=== PATIENT | female | born 1935 | race Asian ===

== ENCOUNTER 2024-12-26 23:09 | Inpatient (IN) | payer MEDICARE, OTHER, SELFPAY ==
[2024-12-26] VITALS (9 sets, daily range): BP systolic 82–110; BP diastolic 43–47
[2024-12-26] MEDS: NSS 500 IV (18:50)
[2024-12-26 19:05] LABS: Hematocrit 31.6 % (37.0-47.0); Hemoglobin 10.6 g/dL (12.0-16.0); Mean Corp Hgb Conc. 33.5 g/dL (33.0-37.0); Mean Corpuscular Volume 88.8 fL (81.0-99.0); Nucleated Red Blood Cells % 0.2 %; Platelet Count 233 10^3/uL (130-400); Red Cell Dist. Width 14.1 % (11.5-14.5)
--- NOTE | 2024-12-26 19:10 | ED.GENMED ---
History of Present Illness
General
Chief Complaint: Dizziness
Source: patient and family
Exam Limitations: none
Time Seen by Provider: 12/26/24 18:31
Nursing documentation reviewed up to this point in time: agreed with
History of Present Illness
History of Present Illness:
Patient is an 89-year-old female who presents to the emergency department with daughter for concerns of weakness. Majority of history obtained using daughter for assistance with translation
Patient's daughter states that for the past 3 days her mom has seemed very weak and was complaining of lightheadedness and dizziness. Patient's daughter states that when she got to her house this evening around 5 PM her mom seemed to be slurring
her words slightly and saying nonsensical things. She lives at home with her and onset of this potential slurring/confusion is unknown. Her daughter does state that over the past few days her mom's seem very lightheaded and had a few
episodes where she appeared to have 'blacked out '. Patient states she feels mildly short of breath. There is no history of trauma.
She has also been eating and drinking very little as she states she has no appetite. She has been having difficulty with bowel movements however denies any black or bloody stools. Patient denies any fever, chills, productive cough, abdominal pain,
nausea, or vomiting. She denies any headache. No changes in her vision. She has no chest pain.
Patient is anticoagulated on Eliquis and supposedly compliant with medication.
Past History
Past History
ED Past Medical History: Arrthythmia (Atrial fibrillation), CHF, GERD, HTN and Other (TIA, carotid stenosis, hyponatremia)
ED Past Surgical History: Cardiac (Pacemaker) and Cholecystectomy
Social History
Tobacco: Non-smoker
Alcohol: None
Drug: None
Personal:
Living: with family
Employment: Retired
Family History
Family History: Hypertension
Review of Systems
Review of Systems
Allergies reviewed?: Yes
All Other Systems: ROS reviewed and negative except as documented in HPI and ROS
Phy Exam
Physical Exam
Physical Exam:
Vitals: Hypertensive, otherwise vital signs stable. Afebrile
General: Patient is weak appearing
Skin: Warm and dry, no rashes or lesions
Head: Normocephalic, atraumatic
Eyes: Sclera nonicteric. EOMs intact. No nystagmus.
Throat: Dry mucous membranes. Protecting airway
Neck: Normal ROM, no cervical spine tenderness, no meningismus
Cardiac: Regular rate and irregularly irregular rhythm, no murmurs.
Pulm: Normal respiratory effort, no wheezes, rales, rhonchi heard on exam
Abdomen: Abdomen soft and nontender.
Extremities: No evidence of cyanosis or edema. Strength 5/5 in bilateral upper and lower extremities.
Neuro: AAOx3. CN II-XII grossly intact. Fluid speech. No facial droop or asymmetry. Normal [id number]. No focal neurologic deficits.
Psychiatric: Normal affect.
Course
Orders/Labs/Results
Orders:
Orders
12/26/24 18:05
Electrocardiogram (*1) Urgent
Reason for Study: Vertigo / Dizzy
12/26/24 18:06
EKG- Treatment ONCE
12/26/24 18:45
pacemaker [Interrogate Pacemaker- Treatment] ONCE
0.9% Sodium Chloride 500 ml [Nss] 500 ml IV BOLUS
CR Chest - 2 Views Urgent
Comment:
Reason For Exam: SOB, weakness
12/26/24 18:46
CT Head W/o Iv Contrast Urgent
Comment:
Reason For Exam: Weakness, dizziness
12/26/24 18:51
Complete Blood Count/With Diff Urgent
Comprehensive Metabolic Panel Urgent
Glycohemoglobin (HgbA1c) Urgent
NT-proBNP Urgent
Troponin I Urgent
12/26/24 21:37
Urinalysis Reflex To Culture Urgent
Date Specimen was Collected: 12/26/24
Time Specimen was Collected: 21:36
Urine Microscopic Reflex Cult Urgent
12/26/24 21:42
CefTRIAXone [Rocephin] 1,000 mg IV NOW STA
Potassium Chloride [KCl] 40 meq PO NOW STA
12/26/24 21:48
Doxycycline [Vibramycin] 100 mg PO NOW STA
12/26/24 22:21
Add On- LAB Urgent
Tests Added?: [id number]
12/26/24 22:49
Admit/Transfer Patient As Directed
Co-Sign Provider:
Level of Care: Inpatient admission
Assign to:: IMU- Intermediate Care
Physician / Group: simin moore
Diagnosis: LLL pna, hypotension, hannah volum deplet, shock liver
Reason for Hospitalization: LLL pna, hypotension, hannah volum deplet, shock liver
Expected length of stay greater than two midnights?: Yes
ELOS- Estimated Length of Stay in days: 3
I certify the patient meets the requirements for IP care: Yes
Code Status As Directed
Resuscitation Status: Full Code
12/26/24 22:52
PRN Pain Medication Management As Directed
May give lesser potent ordered pain med per pt: Yes
preference::
Protocol:: Medication orders for pain may be administered in a
manner that supports deferring to patient preference
when the pt is:
- Requesting an ordered lesser potent pain medication.
Least to most potent pain medications are defined
as: acetaminophen < NSAID < tramadol < opioids
(morphine, oxycodone, hydromorphone).
- Requesting a lesser dose of the same medication IF
ORDERED.
- Requesting a less intrusive route of administration
if both routes are prescribed by the provider (PO <
IV).
12/26/24 23:00
0.9% Sodium Chloride 1000 ml [Nss] 1,000 ml IV 80 mls/hr
Flush (0.9% Sodium Chloride) [Flush (Nss)] See Dose Instructions IV PER PROTOCOL
12/26/24 23:08
COVID-19 Antigen Urgent
Source: Nasal Swab
Lactic Acid Q4H
Comment: CANCEL 2nd LACTIC ACID IF 1st LACTIC ACID IS LESS THAN 2
Blood Culture Q30M
SHY Source: Blood/Venous
Specimen Description:
Blood Culture Q30M
SHY Source: Blood/Venous
Specimen Description:
Influenza A+B Rapid Molecular Urgent
SHY Source: Nasal Swab
Specimen Description:
12/27/24 01:43
Dextrose 50%-Water [Dextrose 50% Syringe] 12.5 grams IV [id number] PRN
Glucagon [GlucaGen] 1 mg IM PRN PRN
12/27/24 01:43
VTE Contraindication Routine
VTE Mechanical Device Contraindication: Medical Contraindication
Pharmocologic Contraindication: Medical Contraindication
Comment: Continue TECHNICAL BUSINESS SYSTEMS ANALYST Eliquis
Activity As Directed
Activity Level: With Assistance
Comment: Uses walker at baseline
Bedside Glucose Monitoring As Directed
Frequency: AC&HS
Additional Instructions:: Change to q6h if pt on TPN, tube feeding or not eating
Intake/ Output As Directed
Frequency: Per unit guidelines
Vital Signs As Directed
Frequency: q4h
Weight As Directed
Frequency: Daily
Pt Eval And Treat Routine
Activity Level: With Assistance
12/27/24 06:00
EKG [Electrocardiogram (*1)] IN AM
Reason for Study: QTc Monitoring
Complete Blood Count/With Diff IN AM
Comprehensive Metabolic Panel IN AM
12/27/24 07:30
Insulin Aspart Corrective Low [Novolog Flexpen-Low Resistance] See Protocol SC AC
12/27/24 08:00
Apixaban [Eliquis] 2.5 mg PO BID
Doxycycline [Vibramycin] 100 mg PO Q12
Gabapentin [Neurontin] 100 mg PO TID
Pantoprazole [Protonix] 40 mg PO DAILY
12/27/24 12:00
Calcium Carbonate/Vitamin D3 [Oscal 500 + D] 500 mg PO DAILY@1200
Cholecalciferol (Vitamin D3) [VITAMIN D3 (cholecalciferol)] 125 mcg PO DAILY@1200
12/27/24 Dinner
1800 calorie (15 carb) Diabetic
At Your Request: Limited Participation
12/27/24 17:00
Atorvastatin [Lipitor] 10 mg PO DAILY@1700
12/27/24 22:00
CefTRIAXone [Rocephin] 1,000 mg IV Q24H
12/28/24 06:00
EKG [Electrocardiogram (*1)] IN AM
Reason for Study: QTc Monitoring
Complete Blood Count/With Diff IN AM
Comprehensive Metabolic Panel IN AM
12/29/24 06:00
EKG [Electrocardiogram (*1)] IN AM
Reason for Study: QTc Monitoring
Complete Blood Count/With Diff IN AM
Comprehensive Metabolic Panel IN AM
12/30/24 06:00
Complete Blood Count/With Diff IN AM
Comprehensive Metabolic Panel IN AM
Abnormal Lab Results
12/26/24 12/26/24
18:51 21:37
WBC 12.8 H 10^3/uL
(4.8-10.8)
RBC 3.56 L 10^6/uL
(4.20-5.40)
Hgb 10.6 L g/dL
(12.0-16.0)
Hct 31.6 L %
(37.0-47.0)
Abs Immat Gran (auto) 0.1 H 10^3/uL
(0-0.05)
Absolute Neuts (auto) 10.8 H 10^3/uL
(1.4-6.5)
Absolute Lymphs (auto) 0.8 L 10^3/uL
(1.2-3.4)
Absolute Monos (auto) 1.0 H 10^3/uL
(0.1-0.6)
Immature Gran % 0.6 H %
(0-0.5)
Neutrophils % 84.7 H %
(42.2-75.2)
Lymphocytes % 6.2 L %
(20.5-51.1)
Sodium 134 L mmol/L
(135-145)
Potassium 3.4 L mmol/L
(3.5-5.1)
BUN 36 H mg/dl
(7-17)
Creatinine 1.6 H mg/dL
(0.6-1.0)
Glucose 273 H mg/dl
(70-99)
Calcium 7.8 L mg/dl
(8.4-10.2)
AST 340 H U/L
(14-36)
ALT 305 H U/L
(0-35)
Total Protein 5.8 L g/dl
(6.3-8.2)
Albumin 3.1 L g/dl
(3.5-5.0)
Ur Occult Blood Reflex 2+ A
(Negative)
Urine RBC 3-6 A /HPF
(0-2)
Urine Bacteria (Reflex) Few A
(Negative)
Urine Albumin (Reflex) 1+ A
(Neg - Trace)
12/26/24 18:51
12/26/24 18:51
Vital Signs
Initial and Last Documented VS:
Initial Vital Signs
Temp Pulse Resp BP Pulse Ox
98.5 F 74 16 82/47 94
12/26/24 18:06 12/26/24 18:06 12/26/24 18:06 12/26/24 18:06 12/26/24 18:06
Last Documented Vital Signs
Temp Pulse Resp BP Pulse Ox
98.5 F 60 20 111/49 93
12/27/24 03:00 12/27/24 02:45 12/27/24 02:45 12/27/24 02:07 12/27/24 02:47
MDM/Problems Addressed
Differential Diagnosis Includes:
Not limited to: Acute dehydration, sepsis, congestive heart failure, cardiac arrhythmia, UTI, CVA, etc.
MDM/Problems Addressed:
89-year-old female with a few days of generalized weakness and dizziness. Apparently she had a fever a few days ago which has resolved. Daughter concerned about possible slurred/abnormal speech today. No chest pain or shortness of breath. No
abdominal pain. Patient hypotensive on arrival with otherwise stable vital signs. Physical exam as above. Patient generally weak appearing. Cardio/pulmonary assessment as above. No focal neurologic deficits. She has an NIH of 0. Differential
broad. Patient does appear very dry�symptoms possibly related to dehydration however given recent fever infectious source would be a concern as well. Much lower suspicion for central etiology given patient has no neurologic deficits on exam. ED
plan: Labs, urine, chest x-ray, head CT. Will give IV fluids and reassess.
Update: Labs reviewed. Leukocytosis of 12.8. Chemistry reveals HANNAH as well as hyperglycemia likely prerenal from dehydration. BNP elevated to 9160. LFTs elevated, nonspecific. Urine does not appear infected. Head CT without acute findings.
Chest x-ray does show a possible left lower lobe pneumonia.
Patient's blood pressure did improve somewhat after small bolus of IV fluids. Will hold further fluids given known CHF. Patient does have evidence of infection with pneumonia seen on x-ray. I suspect hypotension likely secondary to dehydration
rather than sepsis however will send blood cultures and check lactic. Patient will require admission for further management given significant dehydration as well as evidence of pneumonia. Antibiotics initiated in the emergency department. Patient
accepted to the hospitalist service in stable condition.
Chronic conditions affecting care:
Atrial fibrillation on Eliquis, CHF, hypertension
Acute Exacerbation and/or Progression of Chronic Illness:
N/A
*Radiology
Radiology exam reviewed: preliminary read by ED provider and radiology read reviewed
*Pulse Oximetry
SaO2: 94
Oxygen Mode of Delivery: Room air
Patient hypoxic: no
*EKG
Interpreted by ED Provider?: Yes
EKG Intrepretation Date: 12/26/24
Interpretation: abnormal
Comparison EKG: changes noted
Heart Rate: 92
Rate: normal
Rhythm: a-fib and ventricular paced
Interval: long QT
QRS Pattern: normal QRS
Ischemia: no ischemia
*Organizational Development Consultant Interpretation
Rate: normal
Interpretation: abnormal
Heart Rate: 82
Rhythm: a-fib
*Critical Care Note
Total Time (30-74mins, 75-104mins- exclusive of procedures): Not Applicable
Data Reviewed
Review of Other/Old Records Reveals: Testing (Cardiac echo from 02/03/2023 which reveals left ventricular ejection fraction of 65 to 70%)
Patient Management
Discussion with other providers: Hospitalist
Escalation/DeEscalation of care consider admission/obs:
Admit for further management
ED Attending Note
-
Portions of this chart may have been created with voice recognition software.� Occasional wrong word or��sound alike� substitutions may have occurred due to the inherent limitations of voice recognition software.
Discharge Plan
Departure
Patient Disposition: Admit
Date of Disposition: 12/26/24
Time of Disposition: 21:48
Presentation/result/management discussed w/ accepting MD/DO: Hospitalist
Discharge Problem:
Pneumonia, HANNAH (acute kidney injury), Weakness, CHF exacerbation
Interventions
Interventions:
*Risk Screen - Suicide Last Done: 12/26/24 18:11
*Neglect/Abuse Screening Last Done: 12/26/24 18:11
ED- Neurological Assessment Last Done: 12/27/24 00:50
ED- Cardiac Assessment Last Done: 12/26/24 19:24
ED Swallowing Screen Last Done: 12/27/24 00:50
[2024-12-26 19:20] LABS: ALT (SGPT) 305 U/L (0-35); AST (SGOT) 340 U/L (14-36); Albumin 3.1 g/dl (3.5-5.0); Alkaline Phosphatase 124 U/L (38-126); Blood Urea Nitrogen 36 mg/dl (7-17); Calcium 7.8 mg/dl (8.4-10.2); Carbon Dioxide 27 mmol/L (22-30); Chloride 100 mmol/L (98-107); Glucose 273 mg/dl (70-99); Potassium 3.4 mmol/L (3.5-5.1); Sodium 134 mmol/L (135-145); Total Protein 5.8 g/dl (6.3-8.2); eGFR 31.02
[2024-12-26 19:30] LABS: Troponin I 0.032 ng/ml
[2024-12-26 21:53] LABS: Urine Character Slightly Cloudy (Clear)
--- NOTE | 2024-12-26 22:05 | HPS.HSE ---
Addendum entered and electronically signed by Christiano Wahl DO 12/26/24 23:12:
Patient seen and examined independently. Agree with findings and plan as set forth by VIVIANA Morocho.
Patient is an 89y F with PMH significant for A-Fib, hypertension and CHFpEF who presents to ED for evaluation of generalized weakness, fatigue lightheadedness and dizziness. History obtained from patient and family at bedside with family serving
as stripper opaquer. Patient reportedly seen at Urgent Care about 3 days ago due to fevers / chills and temperature of 100.9. They recommended supportive care for suspected viral illness. Patient with increased fatigue and weakness since that time.
Seemed confused tonight at dinner with some slurred speech. Brought to the ED today for evaluation and noted to be hypotensive on arrival.
Evaluation in the ED reveals hypotension and CXR with L base infiltrate / opacity.
Ass:
LLL Pneumonia
Sepsis secondary to the above
Hypotension secondary to the above
HANNAH
Abnormal LFTs
Paroxysmal Atrial Fibrillation
Prolonged QTc
Chronic HFpEF
Plan:
Admit for further evaluation and treatment.
Recent fever / chills now with weakness / confusion and LLL infiltrate seen on CXR.
Patient with leukocytosis, tachypnea and evidence for pneumonia.
Hypotensive in the ED - responded to fluids.
Continue abx with ceftriaxone and doxycycline.
IVF support. Hold diuretics (only takes bumetanide PRN anyway).
Note significantly elevated ProBNP but examination and history not c/w CHF.
Hold amiodarone acutely given prolonged QTc.
Hold antihypertensive medications for now.
IVFs +/- pressor support if needed to maintain perfusion.
Follow for improvement in renal function / return to baseline.
? LFT abnormality secondary to infectious process versus hypotension - follow for changes.
Original Note:
Family Physician
-
Family Physician: Aarti COTTON
Chief Complaint
-
Lightheadedness, dizziness, confusion
History of Present Illness
89-year-old female from home with daughter translating stating her mother has had 3 days of feeling weak complaining of lightheadedness and dizziness. She reports her mother went [facility] she was advised by her sibling due to
fever and chills had a temperature of 100.9 F was told she had a viral illness and sent home. She found her at 5 PM seem to be slurring words and saying nonsensical things. She has had decreased oral intake and no appetite along with difficulty
moving her bowels. She typically only drinks 40 ounces a day due to a fluid restriction for heart failure but was having difficulty drinking that. Today she was sitting at the dining table all day with her head and her hand complaining of
lightheadedness and dizziness. The daughter denies any headache, fever, chills, cough, shortness of breath, abdominal pain, nausea, vomiting. Patient has past medical history of hypovolemic shock, hypotension secondary to shock liver July 2022
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
normocytic anemia, TIA, carotid stenosis, GERD, anxiety depression, chronic arthritis.
Medical History
Past Medical History
Past Medical History: Reports Other
Additional Past Medical History:
Hypovolemic shock July 2022
Hypotension secondary to shock liver July 2022 after left femoral shaft fracture requiring gamma nail
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
Paroxysmal A-fib/PVI ablation 03/07/2020
Sick sinus syndrome status post permanent Pacemaker
Chronic diastolic heart failure preserved EF
Normocytic anemia
TIA
Carotid stenosis
GERD
Anxiety/ Depression
chronic arthritis
Past Surgical History: Reports Cholecystectomy
Additional Past Surgical History:
SSS�permanent pacemaker
left femoral shaft fracture requiring gamma nail July 2022
Social History
Tobacco: Non-smoker
Alcohol: None
Drug: None
Personal:
Living: With Family
Employment: Retired
Family History
Family History: Not pertinent
Allergies / Home Medications
Allergies reflects when Allergies were last updated in [employer].
Home Medications with original date entered in [employer]
Allergy/Medication List:
Allergies
Allergy/AdvReac Type Severity Reaction Status Date / Time
acetaminophen (From Tylenol) Allergy Swelling Verified 02/23/23 10:55
bee venom protein (honey bee) Allergy Anaphylaxis Verified 02/23/23 10:55
Home Medications
gabapentin 100 mg capsule 100 mg PO TID numbness and pain 04/29/19
pitavastatin calcium 2 mg tablet (Livalo) 2 mg PO DAILY@1700 High cholesterol 04/29/19
calcium 600 mg (as carbonate)-vitamin D3 10 mcg (400 unit) tablet (Calcium 600 + D(3)) 1 tab PO DAILY@1200 Supplement 12/05/22
cholecalciferol (vitamin D3) 125 mcg (5,000 unit) tablet (Vitamin D3) 125 mcg PO DAILY@1200 Supplement 12/05/22
diltiazem HCl 180 mg capsule,extended release 24 hr 180 mg PO DAILY@1400 Arrhythmia 12/05/22
olmesartan 20 mg tablet (Benicar) 20 mg PO BID AT 0800,1700 Blood Pressure 12/05/22
apixaban 2.5 mg tablet (Eliquis) 2.5 mg PO BID Blood Clot Prevention/Tx 02/23/23
metoprolol tartrate 25 mg tablet 25 mg PO BID Blood Pressure 02/23/23
bumetanide 1 mg tablet 1 mg PO DAILY #30 tabs 02/27/23
DILT-XR 180 mg PO DAILY@14 12/26/24
amiodarone 200 mg PO DAILY@17 12/26/24
pantoprazole 40 mg tablet,delayed release 40 mg PO DAILY 12/26/24
Review of Systems
-
History Source: Patient and Family (Daughter at bedside)
A 12 point ROS was completed and negative except as noted: Yes
Constitutional: Reports Fever (3 days ago 100.9 F) and Chills
EENT: Denies Sore Throat or Runny Nose
Respiratory: Reports Cough (Dry cough today); Denies Trouble Breathing
Cardiac: Denies Chest Pain, Diaphoresis, Palpitations or Syncope
Abdomen/GI: Denies Abdominal Pain, Nausea, Vomiting, Diarrhea or Constipated
: Denies Dysuria, Frequency, Flank Pain, Incontinence or Difficulty Voiding
Musculoskeletal: Denies Joint Pain or Edema
Skin: Denies Itching or Rash
Neurological: Reports Dizzy and Weakness; Denies Headache
Endocrine: Reports No Symptoms
Hematologic/Lymphatic: Reports No Symptoms
Psych: Reports Calm
Physical Exam
Vital Signs
Vital Signs
Temp Pulse Resp BP Pulse Ox
98.2 F 60 21 104/45 94
12/26/24 21:39 12/26/24 21:00 12/26/24 21:00 12/26/24 20:30 12/26/24 21:00
Physical Exam
General: Comfortable and Conversant; No Fever or Chills
HEENT: NormoCephalic, Anicteric, PERRLA, [place] Conjunctivae and No Ptosis
Respiratory: Clear; No Wheezes, Rales or Rhonchi
Cardiac: S1/S2 and Other (Paced rhythm on monitor); No Murmur, Rub, Gallop or Peripheral Edema
GI: Soft, Non Tender, Non Distended, Normal Bowel Sounds and No Hepatosplenomegaly
Rectal: Deferred by Provider
Genito-urinary: Deferred by me
Musculoskeletal: No Clubbing, No Cyanosis and No Edema
Skin: Warm and Dry; No Rash
Neuro: AO x 3, No Motor Deficits (In bed), Cranial Nerves Intact and No Sensory Deficits; No Slurred Speech, Facial Droop, Tremors or Sedated
Psych: Calm
Laboratory Results
-
12/26/24 18:51
12/26/24 18:51
Laboratory Results
Total Bilirubin 1.0 mg/dl (0.2-1.3) 12/26/24 18:51
AST 340 U/L (14-36) H 12/26/24 18:51
ALT 305 U/L (0-35) H 12/26/24 18:51
Alkaline Phosphatase 124 U/L (38-126) 12/26/24 18:51
Troponin I 0.032 ng/ml 12/26/24 18:51
Impression/Plan
-
Impression/plan:
Admit to IMU
#Left lower lobe PNA
Reported fever 100.9 F 3 days ago
94% RA, 98.2 F
- IV Rocephin,P.o. doxycycline
- Check blood cultures, lactic acid, influenza
# Acute symptomatic hypotension due to pneumonia/volume depletion/HANNAH
BP 82/47 with lightheadedness dizziness, confusion
-Patient given IV NSS 500 cc bolus BP improved to 104/45
-IV NSS 80 cc an hour
- Hold Benicar, diltiazem, metoprolol, amiodarone
#HANNAH due to volume depletion
Creat 1.6 Baseline 0.7 February 27, 2023
-IV NSS 500 cc bolus
-Follow CMP
- Hold Benicar
#Prolonged QTc
EKG A-fib with occasional PVCs, QTc 566 MS
- Hold amiodarone, diltiazem, metoprolol, prolonged QTc agents
- Follow QTc daily
#Acute transaminitis potential for shock liver due to hypotension today
#History of hypotension leading to shock liver July 2022 with LFTs 800s
AST 340, ALT 305
- Monitor LFTs
- Limit Tylenol
- Hold amiodarone
#Acute hypokalemia
K3.4
Will give KCl 40 mEq
#Acute hyperglycemia
Blood sugar 273, check HgbA1c
#Chronic diastolic HFpEF
I/O, daily weights
-Follows with [facility]
-Hold Bumex
2D echo 02/03/2023: EF 65-70%, mild LVH, normal LVSF LVS, mild dilated left atrium, mild TR, PASP 41 mmHg
#Hx hyponatremia possibly symptomatic (SIADH from pain), hypovolemia July 2022
NA 134
#Paroxysmal atrial fibrillation status post ablation with pacemaker
#Prior PVI ablation 03/07/2020
#History intolerant to amiodarone GI upset nausea, sick sinus syndrome with pauses
- Pacemaker interrogation per cards
- HOLD propafenone/BB/Cardizem
- Continue Eliquis
# SSS�status post dual-chamber permanent pacemaker 04/06/2020
#Anemia Normocytic
Hgb 10.6
#History of TIA
- Continue statin
#Carotid stenosis
#GERD
- Continue PPI
#Anxiety/depression
- Continue clonazepam
#Chronic arthritis
- Continue gabapentin
#Left acute transverse fracture in the subtrochanteric region of the proximal left femoral shaft related to mechanical fall status post gamma nail July 2024
DVT ppx: Eliquis
Code: Full
[2024-12-26 22:14] LABS: Urine Squamous Cell 0-2 /LPF (Few); Urine Urothelial Cell 0-2 /LPF (FEW); Urine White Cell 0-2 /HPF (0-5)
[2024-12-26] MEDS: NSS 1000 IV (23:13)
[2024-12-26] MEDS: ROCEPHIN 1000 MG IV (23:20)
[2024-12-26] MEDS: VIBRAMYCIN 100 MG PO (23:20)
[2024-12-26] MEDS: KCL 40 MEQ PO (23:20)
[2024-12-26 23:39] LABS: COVID-19 Antigen Negative (Negative)
[2024-12-27] VITALS (19 sets, daily range): BP systolic 96–142; BP diastolic 43–74; PULSE 60; O2SAT 94; BMI 20.6; BMI 20.7
[2024-12-27 02:06] LABS: Glucose - Point of Care 135 mg/dl (70-99)
[2024-12-27 03:51] LABS: Hematocrit 24.3 % (37.0-47.0); Hemoglobin 8.0 g/dL (12.0-16.0); Mean Corp Hgb Conc. 32.9 g/dL (33.0-37.0); Mean Corpuscular Volume 91.7 fL (81.0-99.0); Nucleated Red Blood Cells % 0 %; Platelet Count 173 10^3/uL (130-400); Red Cell Dist. Width 14.0 % (11.5-14.5)
[2024-12-27 04:39] LABS: Hematocrit 28.0 % (37.0-47.0); Hemoglobin 9.1 g/dL (12.0-16.0); Mean Corp Hgb Conc. 32.5 g/dL (33.0-37.0); Mean Corpuscular Volume 90.0 fL (81.0-99.0); Platelet Count 199 10^3/uL (130-400); Red Cell Dist. Width 14.1 % (11.5-14.5)
--- NOTE | 2024-12-27 05:11 | PTCARENOTE ---
Received patient from the ED overnight with daughter at bedside. Patient Kenyan speaking. IVF infusing as ordered. Afebrile. Desatted to 86 percent while asleep on room air- 2 liters placed. Will continue to monitor.
[2024-12-27 05:23] LABS: ALT (SGPT) 268 U/L (0-35); AST (SGOT) 221 U/L (14-36); Albumin 2.7 g/dl (3.5-5.0); Alkaline Phosphatase 97 U/L (38-126); Blood Urea Nitrogen 35 mg/dl (7-17); Calcium 7.7 mg/dl (8.4-10.2); Carbon Dioxide 25 mmol/L (22-30); Chloride 107 mmol/L (98-107); Estimated Creatinine Clearance 23 ml/min; Glucose 118 mg/dl (70-99); Potassium 3.7 mmol/L (3.5-5.1); Sodium 137 mmol/L (135-145); Total Protein 5.3 g/dl (6.3-8.2); eGFR 43.81
[2024-12-27 07:39] LABS: Glucose - Point of Care 105 mg/dl (70-99)
[2024-12-27] MEDS: NOVOLOG FLEXPEN-LOW RESISTANCE SC ×4 (07:44→16:51)
[2024-12-27] MEDS: NEURONTIN 100 MG PO ×3 (08:50→21:57)
[2024-12-27] MEDS: ELIQUIS 2.5 MG PO ×2 (08:50→19:55)
[2024-12-27] MEDS: PROTONIX 40 MG PO (08:50)
[2024-12-27] MEDS: VIBRAMYCIN 100 MG PO ×2 (08:50→19:55)
--- NOTE | 2024-12-27 09:01 | W.PN.HOSP.TC ---
Today's Communication/Plan
-
Continue with empiric antibiotics and follow culture data.
Resume antihypertensives with parameters. Hold ARB and diuretics.
EKG in AM. Follow on telemetry.
DC statins for now follow CMP
DC further IV fluids as patient is taking adequate oral intake .
Assessment / Plan
Assessment / Plan
Ass:
LLL Pneumonia -community-acquired pneumonia. No primary pulmonary process but in view of recurrent pneumonias check swallow eval. Blood cultures pending. Add Streptococcus pneumonia and Legionella antigen. Abnormal LFTs noted.
Sepsis secondary to the above
Continue empirical antibiotics with ceftriaxone and doxycycline and follow the response.
Not hypoxic.
Hypotension secondary to the above-resolved. Continue antihypertensives with parameters.
HANNAH-suspected hemodynamics related. Improving creatinine. Hold diuretics. Hold ARB. Repeat BMP in AM.
Abnormal LFTs-suspect part of her infectious pneumonia. Hold statins. Follow CMP.
Paroxysmal Atrial Fibrillation-a paced rhythm. Continue with metoprolol, digoxin and Eliquis. Follow on telemetry.
Prolonged QTc-follow on telemetry- pt has A paced rhythm. check EKG in a.m. and if persistent elevation will consult cardiology. Patient on amiodarone. Old EKG reviewed with variable QTc
Chronic HFpEF clinically more hypervolemic.
Note significantly elevated ProBNP but examination and history not c/w CHF. ECHO from 2022 shows normal EF
Hold diuretics. Known to have normal EF.
Full code
Tx to tele
DW RN
DW daughter at bedside
Total time spent on today's encounter was 52 minutes which included time spent in counseling the patient/family regarding diagnosis and treatment plan as listed above, goals of care, and symptom management. Case was discussed with nursing staff,
specialists, and care coordinators/case management. All labs and imaging personally reviewed by me. Remainder the time spent in detailed review of previous records, lab data, imaging, and other medical provider documentation.
Anticipated Discharge: > 48 hours
Subjective/Interval History
-
Date of Service: December 27, 2024
Daughter present at bedside who is the configurator
No confusion today.
She feels okay today. Today she does complain that something is not right in the chest.On further questioning she feels short of breath. No chest pain.
No dizziness .BP improved.
No fevers or chills .
Hx of recurrent pneumonia but no chronic lung conditions per daughter. When questioned about swalloing she does sometimes have cough with eating and thinks more due to dryness.
Lives independently at home with her .Uses walker.
No changes with her heart situation recently .Follow Cards as OP.
Did have some nausea with the pneumonia
Objective Data
-
Labs:
Laboratory Results
12/27/24 12/27/24
03:38 04:32
WBC 9.1 10.0
Hgb 8.0 L D 9.1 L
Hct 24.3 L 28.0 L
Plt Count 173 D 199
Sodium Cancelled 137
Potassium Cancelled 3.7
Chloride Cancelled 107
Carbon Dioxide Cancelled 25
BUN Cancelled 35 H
Creatinine Cancelled 1.2 H
Glucose Cancelled 118 H
Calcium Cancelled 7.7 L
Total Bilirubin Cancelled 0.8
AST Cancelled 221 H
ALT Cancelled 268 H
Alkaline Phosphatase Cancelled 97
Vital Signs:
Vital Signs
Temp Pulse Resp BP Pulse Ox
97.6 F 60 14 131/53 98
12/27/24 07:40 12/27/24 06:00 12/27/24 06:00 12/27/24 06:00 12/27/24 06:00
I&O
12/26/24 12/27/24 12/28/24
06:59 06:59 06:59
Intake Total 640 / 640 480 / 480
Output Total 300 / 300
Balance 340 / 340 480 / 480
Physical Exam
-
General: No Apparent Distress
Respiratory: Crackles (Coarse in left base) and Non Labored Respirations; Negative Wheezes or Accessory Resp Muscle Use
Cardiac: Regular Rhythm (a paced) and S1/S2
GI: Soft, Nontender and No Hepatosplenomegaly
Neuro: AO x 3
Psych: Calm; Negative Confused
Data Reviewed
-
Labs: Labs Reviewed by me
[2024-12-27 11:00] LABS: Glycohemoglobin (HgbA1c) 5.9 % (4.0-5.6)
--- NOTE | 2024-12-27 11:02 | PTOTSP ---
Dysphagia Evaluation
Patient without signs concerning for oral/pharyngeal dysphagia or aspiration during clinical bedside swallowing evaluation but reporting chronic sensation of stasis with solids (pointed to base of neck) and regurgitation episodes prior to admission.
PMH significant for GERD and no other known dysphagia risk factors beyond advanced age. Patient admitted with LLL PNA and history of recurrent pneumonias prompting this evaluation given concern for possible aspiration component.
Cannot r/o pharyngeal vs esophageal dysphagia bedside. If concerned for pharyngeal dysphagia consider video swallow study to objectively assess. Consider GI consult to assess esophageal swallow given signs concerning for esophageal dysphagia,
history of GERD.
Recommend:
1. Regular Solids, Thin liquids w/ patient/family picking soft/moist foods
2. Medications as best tolerated
3. Alternate sips/bites, reflux precautions
4. Video swallow study at discretion of physician
5. Consider gastroenterology consult
[2024-12-27 12:08] LABS: Glucose - Point of Care 236 mg/dl (70-99)
[2024-12-27] MEDS: VITAMIN D3 (cholecalciferol) 125 MCG PO (13:17)
[2024-12-27] MEDS: CARDIZEM CD 180 MG PO (13:17)
[2024-12-27] MEDS: OSCAL 500 + D 500 MG PO (13:17)
--- NOTE | 2024-12-27 13:31 | PTCARENOTE ---
Patient's blood sugar is 236. Patient refused insulin. Patient education provided using technical translator and she verbalized understanding. Dr. Newell made aware. Care ongoing.
--- NOTE | 2024-12-27 13:33 | PTCARENOTE ---
Patient AOx2 (self and time). Bed alarm on and audible. [place] speaking. Exhibit Technician provided by the hospital utilized. On RA with SpO2 greater than 92%. A-paced with first degree on monitor. Assist x1 with RW when OOB. Call bishop within reach, bed
in lowest position, and bed of wheels locked.
--- NOTE | 2024-12-27 14:20 | CM ---
Cm met with pt and son/Ismael bedside, he provided [place] interpretation
Pt and spouse reside in a 2SH with 1 SAV, has a stairglide to 2nd floor and stairglide to basement
Pt is independent with her ADLs and IADLs with use of a WW- she does not drive, spouse continues to drive
PCP- unknown at this time, son will call his sister to inquire
VN recs per therapy
Pt in agreement, general referrals sent to try to find language capability, pending
Discharge Disposition- VN (referrals pending)
--- NOTE | 2024-12-27 15:09 | PTCARENOTE ---
Verbal report given to 4E DEEP Tavera. Patient transported via stretcher. Patient belongings transported with patient.
--- NOTE | 2024-12-27 16:31 | TRANSFER ---
pt arrived from IMU via stretcher accompanied by son and transport staff. pt ambulated from stretcher to bed with RW and standby assist. pt AAOx3, Haitian-speaking. VSS. no complaints at this time. plan of care ongoing.
[2024-12-27] MEDS: PACERONE 200 MG PO (16:46)
[2024-12-27 16:51] LABS: Glucose - Point of Care 139 mg/dl (70-99)
[2024-12-27] MEDS: LOPRESSOR 25 MG PO (19:55)
[2024-12-27] MEDS: TYLENOL 500 MG PO (19:55)
[2024-12-27 21:30] LABS: Glucose - Point of Care 140 mg/dl (70-99)
[2024-12-27] MEDS: ROCEPHIN 1000 MG IV (21:57)
[2024-12-27] MEDS: STERILE WATER FOR INJECTION 10 ML IV (21:57)
[2024-12-28 03:16] VITALS: BP 151/65
[2024-12-28 07:22] VITALS: BP 156/88
[2024-12-28 08:14] LABS: Glucose - Point of Care 104 mg/dl (70-99)
[2024-12-28] MEDS: NOVOLOG FLEXPEN-LOW RESISTANCE SC ×2 (08:29→17:08)
[2024-12-28 08:58] LABS: Hematocrit 28.7 % (37.0-47.0); Hemoglobin 9.3 g/dL (12.0-16.0); Mean Corp Hgb Conc. 32.4 g/dL (33.0-37.0); Mean Corpuscular Volume 90.8 fL (81.0-99.0); Nucleated Red Blood Cells % 0 %; Platelet Count 255 10^3/uL (130-400); Red Cell Dist. Width 14.0 % (11.5-14.5)
[2024-12-28 09:24] LABS: ALT (SGPT) 255 U/L (0-35); AST (SGOT) 212 U/L (14-36); Albumin 2.8 g/dl (3.5-5.0); Alkaline Phosphatase 127 U/L (38-126); Blood Urea Nitrogen 21 mg/dl (7-17); Calcium 8.2 mg/dl (8.4-10.2); Carbon Dioxide 27 mmol/L (22-30); Chloride 108 mmol/L (98-107); Estimated Creatinine Clearance 34 ml/min; Glucose 116 mg/dl (70-99); Potassium 3.9 mmol/L (3.5-5.1); Sodium 138 mmol/L (135-145); Total Protein 5.5 g/dl (6.3-8.2); eGFR > 60.00
[2024-12-28] MEDS: NEURONTIN 100 MG PO ×2 (09:40→15:22)
[2024-12-28] MEDS: OSCAL 500 + D 500 MG PO (09:41)
[2024-12-28] MEDS: LOPRESSOR 25 MG PO ×2 (09:41→19:54)
[2024-12-28] MEDS: PROTONIX 40 MG PO (09:41)
[2024-12-28] MEDS: ELIQUIS 2.5 MG PO ×2 (09:41→19:54)
[2024-12-28] MEDS: VIBRAMYCIN 100 MG PO ×2 (09:41→19:54)
--- NOTE | 2024-12-28 12:11 | W.PN.HOSP.TC ---
Today's Communication/Plan
-
check CT chest
echo pending
cont with iv abx
cr stabilized
Assessment / Plan
Assessment / Plan
Ass:
LLL Pneumonia -community-acquired pneumonia.
Sepsis secondary to the above
Continue empirical antibiotics with ceftriaxone and doxycycline and follow the response.
Not hypoxic.
Spiked fever overnight.
Legionella and strep pneumo antigen negative. Influenza negative. MRSA screen pending.
Will check CT of the chest without contrast to assess further
CoNS bacteremia likely contaminant.
Hypotension secondary to the above-resolved. Continue antihypertensives with parameters.
HANNAH-suspected hemodynamics related. Improving creatinine. Hold diuretics. Hold ARB. Repeat BMP in AM. Creatinine stabilized 0.8.
Abnormal LFTs-suspect part of her infectious pneumonia. Hold statins. Follow CMP. Mild improvement noted
Paroxysmal Atrial Fibrillation-a paced rhythm. Remains in afib. Continue with metoprolol, digoxin and Eliquis. Follow on telemetry.
Prolonged QTc-follow on telemetry- pt has A paced rhythm. Qtc at 497.
Chronic HFpEF clinically more hypervolemic.
Note significantly elevated ProBNP
Repeat ECHO
Restart bumex in am
Full code
Discussed with patient's son at bedside and daughter over the phone in details
PT/OT-home health
Anticipated Discharge: Within 24 hours
Subjective/Interval History
-
Date of Service: December 28, 2024
Spiked fevers overnight.
on room air
Objective Data
-
Labs:
Laboratory Results
12/28/24
08:35
WBC 8.9
Hgb 9.3 L
Hct 28.7 L
Plt Count 255 D
Sodium 138
Potassium 3.9
Chloride 108 H
Carbon Dioxide 27
BUN 21 H
Creatinine 0.8
Glucose 116 H
Calcium 8.2 L
Total Bilirubin 0.7
AST 212 H
ALT 255 H
Alkaline Phosphatase 127 H
Vital Signs:
Vital Signs
Temp Pulse Resp BP Pulse Ox
98.4 F 107 16 156/88 94
12/28/24 07:22 12/28/24 07:22 12/28/24 07:22 12/28/24 07:22 12/28/24 07:22
I&O
12/27/24 12/28/24 12/29/24
06:59 06:59 06:59
Intake Total 640 / 640 720 / 720
Output Total 300 / 300
Balance 340 / 340 720 / 720
Data Reviewed
-
Total Time Spent with Patient (in minutes): 55
[2024-12-28 12:18] LABS: Glucose - Point of Care 165 mg/dl (70-99)
[2024-12-28] MEDS: NOVOLOG FLEXPEN-LOW RESISTANCE 1 UNITS SC (12:34)
[2024-12-28] MEDS: VITAMIN D3 (cholecalciferol) 125 MCG PO (12:35)
[2024-12-28] MEDS: CARDIZEM CD 180 MG PO (15:22)
[2024-12-28 15:25] VITALS: BP 143/77
[2024-12-28 17:01] LABS: Glucose - Point of Care 129 mg/dl (70-99)
[2024-12-28] MEDS: PACERONE 200 MG PO (17:12)
[2024-12-28 19:07] VITALS: BP 174/74
[2024-12-28] MEDS: STERILE WATER FOR INJECTION IV (21:12)
[2024-12-28] MEDS: NEURONTIN PO (21:12)
[2024-12-28] MEDS: ROCEPHIN IV (21:12)
--- NOTE | 2024-12-28 21:12 | PTCARENOTE ---
Patient refused 2200 medications and night time blood glucose check. Patient educated on medication importance. Patient stated she had too much done today and just wants to be left alone to sleep. Call bishop is within reach.
[2024-12-29 03:18] VITALS: BP 167/66
[2024-12-29 07:30] VITALS: BP 160/69
[2024-12-29 08:22] LABS: ALT (SGPT) 320 U/L (0-35); AST (SGOT) 311 U/L (14-36); Albumin 3.0 g/dl (3.5-5.0); Alkaline Phosphatase 153 U/L (38-126); Blood Urea Nitrogen 17 mg/dl (7-17); Calcium 8.3 mg/dl (8.4-10.2); Carbon Dioxide 27 mmol/L (22-30); Chloride 106 mmol/L (98-107); Estimated Creatinine Clearance 34 ml/min; Glucose 96 mg/dl (70-99); Potassium 3.9 mmol/L (3.5-5.1); Sodium 139 mmol/L (135-145); Total Protein 5.8 g/dl (6.3-8.2); eGFR > 60.00
[2024-12-29 08:32] LABS: Hematocrit 31.5 % (37.0-47.0); Hemoglobin 10.1 g/dL (12.0-16.0); Mean Corp Hgb Conc. 32.1 g/dL (33.0-37.0); Mean Corpuscular Volume 91.3 fL (81.0-99.0); Platelet Count 298 10^3/uL (130-400); Red Cell Dist. Width 14.3 % (11.5-14.5)
[2024-12-29] MEDS: NEURONTIN 100 MG PO (08:32)
[2024-12-29] MEDS: ELIQUIS 2.5 MG PO (08:33)
[2024-12-29] MEDS: LOPRESSOR 25 MG PO (08:33)
[2024-12-29] MEDS: VIBRAMYCIN 100 MG PO (08:33)
[2024-12-29] MEDS: PROTONIX 40 MG PO (08:33)
[2024-12-29] MEDS: NOVOLOG FLEXPEN-LOW RESISTANCE SC (08:43)
[2024-12-29 08:47] LABS: Glucose - Point of Care 97 mg/dl (70-99)
[2024-12-29 09:48] LABS: Nucleated Red Blood Cells % 0 %
[2024-12-29] MEDS: VITAMIN D3 (cholecalciferol) 125 MCG PO (11:13)
[2024-12-29] MEDS: MAALOX 30 ML PO (11:13)
[2024-12-29] MEDS: OSCAL 500 + D 500 MG PO (11:13)
[2024-12-29 11:42] VITALS: BP 139/48
[2024-12-29 12:02] VITALS: BP 134/48
[2024-12-29 12:13] LABS: Glucose - Point of Care 252 mg/dl (70-99)
[2024-12-29] MEDS: NOVOLOG FLEXPEN-LOW RESISTANCE 3 UNITS SC (12:15)
--- NOTE | 2024-12-29 12:17 | W.PN.HOSP.TC ---
Addendum entered and electronically signed by Wm Crespo MD 12/30/24 15:30:
other likely due to sepsis
severe sepsis due to stuart
Original Note:
Today's Communication/Plan
-
po abx
afebrile
restart diuretics
Assessment / Plan
Assessment / Plan
Ass:
#LLL Pneumonia -community-acquired pneumonia.
Sepsis secondary to the above
Continue empirical antibiotics with ceftriaxone and doxycycline and follow the response.
Not hypoxic.
Remains afebrile. Last fever at 12/27 on 1948.
Legionella and strep pneumo antigen negative. Influenza negative. MRSA screen pending.
CT chest w/o contrast with severe left sided pneumonia. Infiltrate noted on R sided
#CoNS bacteremia likely contaminant.
#Hypotension secondary to the above-resolved.
#Dizziness in am -improved
Continue antihypertensives with parameters.
Orthostatic negative.POC 97-->252
Per daughter, dizziness as took meds on empty stomach. Breakfast was delayed. now sitting in chair without any complaints.
#STUART-suspected hemodynamics related.
Creatinine stabilized 0.8.
Resolved
#Abnormal LFTs-suspect part of her infectious pneumonia.
Hold statins for now and restart if LFTs improve as outpatient.
Follow CMP.
#Paroxysmal Atrial Fibrillation-a paced rhythm
Continue with metoprolol, amiodarone and Eliquis and cardizem
Follow on telemetry.
#Prolonged QTc-follow on telemetry- pt has A paced rhythm
#Chronic HFpEF
#Mitral regurgitation-worsened -per daughter patient would probably would not want any aggressive procedures.
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
Note significantly elevated ProBNP . CT chest with no pulmonary edema pattern.
Orthostatic negative. Restart Bumex.
ECHO noted EF 54%.
OP cards f/u
Cont Eliquis.
Recommended outpatient follow-up with primary arts education teacher
Full code
PT/OT-home health
Discussed with patient daughter over the phone in details. Discussed discharge planning to home and patient and daughter were agreeable and amenable.
Also discussed with another family member at bedside in detail.
More than 30 minutes spent in discharge including
Final examination of the patient
Summarizing hospital stay
Instructions for continuing care to all relevant caregivers
Preparation of discharge records, prescriptions, and referral forms
Total time spent (in minutes): 52
Anticipated Discharge: Today
Subjective/Interval History
-
Date of Service: December 29, 2024
awaiting for breakfast
state felt dizzy
remains for afebrile
Objective Data
-
Labs:
Laboratory Results
12/29/24
07:01
WBC 7.9
Hgb 10.1 L
Hct 31.5 L
Plt Count 298
Sodium 139
Potassium 3.9
Chloride 106
Carbon Dioxide 27
BUN 17
Creatinine 0.8
Glucose 96
Calcium 8.3 L
Total Bilirubin 0.8
AST 311 H
ALT 320 H
Alkaline Phosphatase 153 H
Vital Signs:
Vital Signs
Temp Pulse Resp BP Pulse Ox
97.5 F 61 20 139/48 95
12/29/24 11:42 12/29/24 11:42 12/29/24 11:42 12/29/24 11:42 12/29/24 11:42
I&O
12/28/24 12/29/24 12/30/24
06:59 06:59 06:59
Intake Total 720 / 720
Balance 720 / 720
Physical Exam
-
General: No Apparent Distress
HEENT: Normocephalic, Atraumatic and Moist Mucous Membranes
Respiratory: Clear to Auscultation and Non Labored Respirations; Negative Wheezes or Accessory Resp Muscle Use
Cardiac: Regular Rhythm (a paced) and S1/S2
GI: Soft, Nontender, Nondistended and Normal Bowel Sounds
Neuro: Awake and No Motor Deficits; Negative Slurred Speech or Facial Droop
Psych: Calm; Negative Confused
Data Reviewed
-
Total Time Spent with Patient (in minutes): 55
[2024-12-29 12:41] VITALS: BP 139/60; BP 140/60; BP 146/73; PULSE 61; PULSE 63
--- NOTE | 2024-12-29 13:54 | W.DCSUMMARY ---
Discharge Summary
Discharge Data
Date of Admission: 12/26/24
Date of Discharge: 12/29/24
-
Pending Results: No
Hospital Course
89-year-old female past medical history of chronic HFpEF, mitral regurgitation, atrial fibrillation, pacemaker implantation was presented with complaint of fatigue and weakness. Patient was seen at the urgent care prior to admission for fever
chills and elevated temperature. Upon admission patient was found to have a pneumonia and patient was started on broad-spectrum antibiotics. Patient was also found to acute kidney injury with hypotension. ARB and diuretics were held. Patient
creatinine slowly downtrended and acute kidney injury resolved. Patient also with fever and leukocytosis. CT scan showed severe left-sided pneumonia with infiltrates also on the right side. Leukocytosis resolved. Patient remained afebrile for
greater than 24 hours prior to discharge. Patient was tolerating diet. Orthostatics were negative. Blood glucose was stable. Patient echocardiogram with worsening of mitral regurgitation and intra-atrial septum lipomatosis hypertrophy versus
mass. Seems low likelihood of mass. Patient currently on goal-directed medical therapy and will need to be continued on it. Patient will need to follow-up with her primary wrapper stitcher as outpatient. Patient also had transaminitis and statin
medicine was discontinued. T. bili was normal. recommended repeat CMP to assess for transaminitis. Patient will be transition from IV antibiotics to p.o. antibiotics. Patient orthostatics was negative and was restarted on diuretics and home
blood pressure regimen. Patient course was discussed with patient daughter over the phone in details.
Discharge Plan
-
Patient Disposition: Home with Home Care
Discharge Diagnosis/Procedures: Left lower lobe pneumonia
Sepsis
Coag negative staph bacteremia likely contaminant
Hypotension
acute kidney injury
Transaminitis
Mitral regurgitation
thickening of the interatrial septum
Condition: Fair
Diet: As tolerated
Activity: With assistance and As tolerated
Driving Restrictions: No driving
Blood Work: CMP in 7 days via primary doctor to assess for transaminitis
Other Services: VN
Activity Restrictions/Additional Instructions:
Follow-up with your primary wrapper stitcher for mitral regurgitation worsening and for thickening of the interatrial septum. Lipomatous hypertrophy vs mass seen on ECHOcardiogram.
Doxycycline Precautions
�� Take with at least 6 oz H2O
�� Take with food but no calcium containing products like milk or cheese
�� Ideally you would not take any multivitamins, calcium, magnesium or zinc containing products.
�� If you must take one of these products make sure that the pills are by at least 3 hours.
�� Sit up for at least 30 minutes after each dose to prevent heartburn.
�� Your skin will be more sensitive to the sun while you are on doxycycline - it will be very easy for you to get a sunburn.
Referrals:
PRIVATE,PHYSICIAN [Family Provider, Internal Medicine] - in less than 1 week
Additional Discharge Medication Instructions: Livalo was discontinued for now.
Prescriptions:
New
cefdinir 300 mg capsule
300 mg PO Q12H Qty: 10 0RF
doxycycline hyclate 100 mg capsule
100 mg PO BID Qty: 8 0RF
Continued
gabapentin 100 MG capsule
100 mg PO TID
olmesartan [Benicar] 20 mg tablet
20 mg PO BID AT 0800,1700
calcium carbonate-vitamin D3 [Calcium 600 + D(3)] 600 mg-10 mcg (400 unit) Tablet
1 tab PO DAILY@1200
cholecalciferol (vitamin D3) [Vitamin D3] 125 mcg (5,000 unit) Tablet
125 mcg PO DAILY@1200
diltiazem HCl 180 mg capsule,extended release 24hr
180 mg PO DAILY@1400
metoprolol tartrate 25 mg tablet
25 mg PO BID
Eliquis 2.5 mg tablet
2.5 mg PO BID
bumetanide 1 mg Tablet
1 mg PO DAILY Qty: 30 0RF
amiodarone
200 mg PO DAILY@17
pantoprazole 40 mg tablet,delayed release (DR/EC)
40 mg PO DAILY
Discontinued
pitavastatin calcium [Livalo] 2 MG tablet
2 mg PO DAILY@1700
Discharge Orders:
Discharge Patient (As Directed); Ordered 12/29/24
Ordered By: Wm Crespo
Discharge Date and Time
Print Language: KAZAKH
[2024-12-29] MEDS: CARDIZEM CD 180 MG PO (14:22)
--- NOTE | 2024-12-29 14:58 | PN.CDI ---
CDI
- -
CDI:
Physician Documentation Request
Admit Date: 12/26/24 23:09
Dear Doctor Zak,
Please review the following and provide your response in the progress notes.
Clinical Indicators:
Pt admitted with Sepsis 2/2 PNA/HANNAH
Progress note 12/28, ' Hypotension secondary to the above-resolved. Continue antihypertensives with parameters.HANNAH-suspected hemodynamics related. Improving creatinine...'
Please clarify which of the following most accurately describes the status of the patient's infection:
Severe Sepsis due to HANNAH
- Sepsis with associated acute organ dysfunction, such as renal or respiratory failure
- Documentation should indicate the association between the sepsis and the organ dysfunction
Sepsis only
Other ( please specify)
Use of terms such as suspected, likely, concern for, or probable (associated with a specific diagnosis that is being evaluated, monitored, or treated as if it exists) are acceptable and can be coded in the inpatient setting, when documented at the
time of discharge.
Thank you,
Ramonita Leary RN
CDI Specialist
[place] [employer]
Please use your independent medical judgment in providing your response.
--- NOTE | 2024-12-29 15:02 | CM ---
Addendum entered by SEBAS Nix 12/29/24 15:08:
Resumption of care referral sent to [facility], added additional information. Placed a call to patient's daughter to try and determine primary.
Original Note:
Met with patient and her daughter in law who was at bedside. She was aware of upcoming d/c. Reviewed IMM and it was signed, now on chart. Daughter in law is transporting home. She is current with [facility]. Will make resumption of care referral.
Plan: Case management will continue to follow and assist with discharge planning. Home with [facility].
--- NOTE | 2024-12-29 15:05 | PN.CDI ---
CDI
- -
CDI:
Physician Documentation Request
Admit Date: 12/26/24 23:09
Dear Doctor Zak,
Please review the following and provide your response in the progress notes.
Clinical Indicators:
Pt admitted with Sepsis 2/2 PNA/HANNAH
Documented per H&P,' Acute transaminitis potential for shock liver due to hypotension today...AST 340, ALT 305Monitor LFTs Limit Tylenol Hold amiodarone....'
Progress notes 12/28-12/29, ' #Abnormal LFTs-suspect part of her infectious pneumonia. Hold statins for now and restart if LFTs improve as outpatient. Follow CMP. ...'
12/26/24 12/27/24 12/28/24
18:51 04:32 08:35
AST 340 H 221 H 212 H
ALT 305 H 268 H 255 H
12/29/24
07:01
AST 311 H
ALT 320 H
Please update the Status of Shock liver documented in the H&P:
Shock liver -a valid diagnosis
Shock Liver -Ruled out
Other ( please specify)
Use of terms such as suspected, likely, concern for, or probable (associated with a specific diagnosis that is being evaluated, monitored, or treated as if it exists) are acceptable and can be coded in the inpatient setting, when documented at the
time of discharge.
Thank you,
Ramonita Leary RN
CDI Specialist
[place] [employer]
Please use your independent medical judgment in providing your response.
== END 2024-12-29 15:25 | disposition home health service (06) | DRG 871 ==
LOC: 4 EAST ACU 23:09
PROVIDERS: Clinical Nurse Specialist Family Health; Physician Assistant; ADMITTING PHYSICIAN Hospitalist; ATTENDING PHYSICIAN Hospitalist; EMERGENCY PHYSICIAN Emergency Medicine
DX: A41.9 Sepsis, unspecified organism (principal); J18.9 Pneumonia, unspecified organism; N17.9 Acute kidney failure, unspecified; I50.32 Chronic diastolic (congestive) heart failure; E22.2 Syndrome of inappropriate secretion of antidiuretic hormone; I34.0 Nonrheumatic mitral (valve) insufficiency; I95.89 Other hypotension; I48.0 Paroxysmal atrial fibrillation; I11.0 Hypertensive heart disease with heart failure; I49.5 Sick sinus syndrome; Z95.0 Presence of cardiac pacemaker; D64.9 Anemia, unspecified; K21.9 Gastro-esophageal reflux disease without esophagitis; F32.A Depression, unspecified; F41.9 Anxiety disorder, unspecified; Z86.73 Personal history of transient ischemic attack (TIA), and cerebral infarction without residual deficits; Z90.49 Acquired absence of other specified parts of digestive tract; E11.65 Type 2 diabetes mellitus with hyperglycemia; E87.6 Hypokalemia; I49.3 Ventricular premature depolarization; Z79.01 Long term (current) use of anticoagulants; Z79.899 Other long term (current) drug therapy; Z11.52 Encounter for screening for COVID-19; R65.20 Severe sepsis without septic shock
CPT/HCPCS: 70450; 71046; 71250; 80053; 81003; 81015; 82962; 83036; 83605; 83880; 84484; 85025; 85027; 87040; 87070; 87150; 87205; 87449; 87502; 87811; 87899; 92610; 93005; 93306; 96360; 97163; 97167; 97530; 97535; 99285